=== PATIENT | female | born 1985 | race African-American/Black ===

== ENCOUNTER 2023-05-21 11:00 | Outpatient (REF) | payer MEDICAID, SELFPAY ==
[2023-05-21 13:44] LABS: Basophils Percent Auto 0.3 % (0-2); Eosinophils Absolute Auto 0.1 X10*3/uL (0.0-0.4); Eosinophils Percent Auto 1.5 % (0-4); Hematocrit 38.8 % (37.0-47.0); Imm Gran Abs Auto 0.01 X10*3/uL (0.00-0.03); Imm Gran Pct Auto 0.2 % (0.0-0.4); Lymphocytes Percent Auto 50.3 % (20-40); MANUAL DIFF FLAG SCAN; Mean Corpuscular HGB Conc 30.9 g/dl (31.0-35.0); Mean Corpuscular Hemoglobin 26.2 pg (27.0-33.0); Mean Corpuscular Volume 84.7 fL (80.0-98.0); Mean Platelet Volume 9.6 fL (9.4-12.3); Monocytes Absolute Auto 0.4 X10*3/uL (0.1-1.2); Monocytes Percent Auto 5.9 % (2-11); Neutrophils Absolute Auto 2.5 x10*3/uL (2.0-8.3); Neutrophils Percent Auto 41.8 % (45-73); Platelet Count 402 X10*3/uL (160-400); Red Blood Count 4.58 X10*6/uL (4.20-5.50); SCAN SMEAR FLAG 1; White Blood Count 5.9 X10*3/uL (4.8-10.8)
[2023-05-21 13:51] LABS: Estimated Average Glucose 117 mg/dL; Hemoglobin A1c % 5.7 % (<6.0)
[2023-05-21 14:14] LABS: Alanine Aminotransferase 24 U/L (0-31); Albumin Level 4.3 g/dL (3.5-5.0); Alkaline Phosphatase 65 U/L (39-117); Anion Gap 10 (12-20); Aspartate Amino Transferase 17 U/L (5-31); Bilirubin Total 0.3 mg/dL (0.0-1.0); Blood Urea Nitrogen 7 mg/dL (9-16); Calcium 9.8 mg/dL (8.4-10.2); Carbon Dioxide 27 mmol/L (22-29); Chloride 106 mmol/L (96-108); Cholesterol 177 mg/dL (<200); Estimated Glomerular Filt Rate > 60; Glucose Random 86 mg/dL (60-115); HDL Cholesterol 50 mg/dL (>40); Iron 43 mcg/dL (30-160); LDL Cholesterol Calculated 110 mg/dL (<100); Percent Iron Saturation 16 % (15-50); Potassium 3.9 mmol/L (3.3-5.1); Sodium 139 mmol/L (135-145); Total Iron Binding Capacity 277 mcg/dL (228-428); Total Protein 8.1 g/dL (6.5-8.0); Triglycerides 86 mg/dL (<150); Unsaturated Iron Binding 234 ug/dL
[2023-05-21 14:31] LABS: Syphilis Screen Nonreactive (Nonreactive)
[2023-05-21 14:34] LABS: Ferritin 29 ng/mL (10-122); TSH reflex Free T4 0.89 uIU/mL (0.32-4.0)
[2023-05-21 15:24] LABS: SLIDE REVIEW VERIFIED
[2023-05-21 17:51] LABS: CT PCR NOT DETECTED (Not Detect.); NG PCR NOT DETECTED (Not Detect.)
[2023-05-22 08:13] LABS: HBS Num1 0.23 mIU/mL (0-7.99); HBc Num1 0.11 S/CO (0.00-0.79); HIV AB/AG Nonreactive (Nonreactive); HIV Num 1 0.08 S/CO (0.00-0.99); Hepatitis B Core Antibody Nonreactive (Nonreactive); Hepatitis B Surface Antigen Negative (Negative); ~HepC Num1 0.18 S/CO (0.00-0.79); ~Hepatitis B Surface Antibody NONREACTIVE (Nonreactive); ~Hepatitis C Antibody Nonreactive (Nonreactive)
[2023-05-23 23:13] LABS: TS Negative Control Passed; TS Panel A 1; TS Panel B 1; TS Positive Control Passed; TSpotTB Negative (Negative)
== END 2023-05-21 11:01 | disposition home or self-care (01) ==
LOC: HO.HHCL 11:00
PROVIDERS: Visit Provider Student in an Organized Health Care Education/Training Program
DX: Z00.00 Encounter for general adult medical examination without abnormal findings (principal); Z11.4 Encounter for screening for human immunodeficiency virus [HIV]; Z11.3 Encounter for screening for infections with a predominantly sexual mode of transmission
CPT/HCPCS: 0353U; 80053; 80061; 82728; 83036; 83540; 84443; 85025; 86481; 86704; 86706; 86780; 86803; 87340; 87389

== ENCOUNTER 2023-05-23 16:10 | Outpatient (REF) | payer MEDICAID, SELFPAY ==
[2023-05-24 13:49] LABS: Campylobacter Not Detected (Not Detect.); Cryptosporidium Not Detected (Not Detect.); Cyclospora cayetanensis Not Detected (Not Detect.); E. coli EAEC Not Detected (Not Detect.); E. coli EPEC Not Detected (Not Detect.); E. coli ETEC Not Detected (Not Detect.); E. coli STEC Not Detected (Not Detect.); Plesiomonas shigelloides Not Detected (Not Detect.); Salmonella Not Detected (Not Detect.); Shigella sp./EIEC Not Detected (Not Detect.); Vibrio Not Detected (Not Detect.); Vibrio Cholerae Not Detected (Not Detect.); Yersinia enterocolitica Not Detected (Not Detect.)
[2023-05-24 13:50] LABS: Adenovirus F 40/41 Not Detected (Not Detect.); Astrovirus Not Detected (Not Detect.); Entamoeba histolytica Not Detected (Not Detect.); Giardia lamblia Not Detected (Not Detect.); Norovirus GI/GII Not Detected (Not Detect.); Rotavirus A Not Detected (Not Detect.); Sapovirus Not Detected (Not Detect.)
== END 2023-05-23 16:11 | disposition home or self-care (01) ==
LOC: HO.HHCLNP 16:10
PROVIDERS: Visit Provider Student in an Organized Health Care Education/Training Program
DX: Z00.00 Encounter for general adult medical examination without abnormal findings (principal)
CPT/HCPCS: 87507

== ENCOUNTER 2023-07-09 18:33 | Outpatient (REF) | payer MEDICAID, SELFPAY ==
[2023-07-10 13:48] LABS: BV Int Neg Control Negative (Negative); BV Int Pos Control Positive (Positive)
[2023-07-11 22:23] LABS: HPV mRNA E6/E7 rflx Not Detected (Not Detected)
== END 2023-07-09 18:34 | disposition home or self-care (01) ==
LOC: HO.HHCLNP 18:33
PROVIDERS: Visit Provider Advanced Practice Midwife
DX: Z12.4 Encounter for screening for malignant neoplasm of cervix (principal); Z11.51 Encounter for screening for human papillomavirus (HPV); N89.8 Other specified noninflammatory disorders of vagina
CPT/HCPCS: 87480; 87510; 87624; 87660; 88142

== ENCOUNTER 2023-10-28 10:38 | Emergency (ER) | payer MEDICAID, SELFPAY ==
--- NOTE | ~2023-10-28 | US_ITS ---
EXAMINATION: US PELVIS CLINICAL INFORMATION: Back pain and bleeding. COMPARISON: None available. TECHNIQUE: Ultrasound of the pelvis is performed using both transabdominal and transvaginal transducers along with Doppler. Transvaginal imaging is performed due to inadequate visualization transabdominally. FINDINGS: Uterus: The uterus is anteverted and measures 10.8 x 3.7 x 5.3 cm. The double wall endometrial thickness is 5.0 mm. The uterus is smooth in contour and has normal myometrial echogenicity. No visible fibroid. Adnexa: Both ovaries are visualized. There is normal color flow to the adnexa. There is no ovarian torsion. There is no pelvic ascites or fluid collection. Right ovary measures 1.9 x 1.3 x 2.3 cm and volume 2.9 mL. No focal lesion seen. Left ovary measures 2.7 x 2.1 x 2.4 cm and volume 7.0 mL. There is a anechoic cyst measuring 1.7 x 1.3 1.4 cm. A small daughter cyst is seen within. There is normal arterial and venous flow to both ovaries on Doppler exam. There is no free fluid in cul-de-sac. US/US pelvic ovarian doppler IMPRESSION: Normal ovaries with normal arterial and venous vascular flow on Doppler exam. There is no torsion. The uterus appears unremarkable.
--- NOTE | ~2023-10-28 | US_ITS ---
EXAMINATION: US PELVIS CLINICAL INFORMATION: Back pain and bleeding. COMPARISON: None available. TECHNIQUE: Ultrasound of the pelvis is performed using both transabdominal and transvaginal transducers along with Doppler. Transvaginal imaging is performed due to inadequate visualization transabdominally. FINDINGS: Uterus: The uterus is anteverted and measures 10.8 x 3.7 x 5.3 cm. The double wall endometrial thickness is 5.0 mm. The uterus is smooth in contour and has normal myometrial echogenicity. No visible fibroid. Adnexa: Both ovaries are visualized. There is normal color flow to the adnexa. There is no ovarian torsion. There is no pelvic ascites or fluid collection. Right ovary measures 1.9 x 1.3 x 2.3 cm and volume 2.9 mL. No focal lesion seen. Left ovary measures 2.7 x 2.1 x 2.4 cm and volume 7.0 mL. There is a anechoic cyst measuring 1.7 x 1.3 1.4 cm. A small daughter cyst is seen within. There is normal arterial and venous flow to both ovaries on Doppler exam. There is no free fluid in cul-de-sac. US/US pelvic and transvaginal IMPRESSION: Normal ovaries with normal arterial and venous vascular flow on Doppler exam. There is no torsion. The uterus appears unremarkable.
--- NOTE | ~2023-10-28 | CT_ITS ---
EXAMINATION: CT head/brain wo IV con CLINICAL INFORMATION: Reason for Exam headache and blurred vision COMPARISON: None. TECHNIQUE: Contiguous axial imaging was performed from the skull base to vertex without intravenous contrast. Sagittal and coronal reformatted images were obtained. This CT examination was performed using dose optimization techniques as appropriate, variously including the following: * Automated exposure control * Adjustment of mA and/or kV according to patient size (this includes techniques or standardized protocols for targeted exams where dose is matched to indication/reason for exam; i.e. extremities or head) Use of iterative reconstruction technique DLP: 688.55 mGy-cm FINDINGS: No acute osseous or soft tissue abnormality. The mastoid are clear. Mild right maxillary sinus mucosal thickening. There is no evidence of acute intracranial hemorrhage or territorial infarction. No abnormal mass effect or midline shift is seen. Serrato to white matter differentiation is well preserved. No extra-axial fluid collections are identified. No hydrocephalus. No significant volume loss. There is no abnormal attenuation within the brain parenchyma. CT/CT head/brain wo IV con IMPRESSION: No acute intracranial abnormality including hemorrhage, mass effect, hydrocephalus, or acute territorial edematous infarction.
[2023-10-28 10:46] VITALS: BP 144/68; PULSE 75; O2SAT 100
[2023-10-28 11:21] VITALS: BP 122/73; PULSE 82; RESP 18; TEMP 37.1; O2SAT 97; BMI 30.9
--- NOTE | 2023-10-28 11:22 | ED.FEMALEGU ---
HPI - Female Genitourinary General Chief complaint: Vaginal Bleeding Stated complaint: HEAVY VAGINAL BLEEDING Time Seen by Provider: 10/28/23 11:58 Source: patient Mode of arrival: ambulatory Limitations: other (American Creole bilingual interpreter used for communication) History of Present Illness HPI Narrative: 38-year-old female with no known medical history presents to the emergency department for evaluation of heavy vaginal bleeding that has been intermittent since August, patient reports the last few days have been the worse she is going through 2-4 pads per hour. She reports that this has never happened to her before. Also has been having a diffuse headache with intermittent blurred vision for the past 3 days. She tells me she is under lot of stress in his living at a intermediate last night she cooked food for her children in somebody threw it away, finances or definitely an issue is suffering from anxiety and depression. No suicidal or homicidal ideation expressed. Denies abdominal pain, fevers, chills, nausea, vomiting, weakness, dizziness, chest pain, shortness of breath. States not sexually active. And doesnt think she is NIH stroke scale 0 Related Data Allergies Allergy/AdvReac Type Severity Reaction Status Date / Time No Known Allergies Allergy Verified 10/28/23 11:29 Review of Systems Review of Systems: Yes all other systems are reviewed and are negative PMFSH Past Medical History Attestation statement: The following information was validated with the patient. Source: old records reviewed and nursing notes reviewed Social History Social History Smoked in Last 30 Days: No Use of substances other than those prescribed or required for medical reasons: No Advance Directives: No Patient : No Physical Exam Vital Signs: Vital Signs: Last Vital Signs Temp 98.5 F 10/28/23 12:00 Pulse 80 10/28/23 12:00 Resp 18 10/28/23 12:00 BP 116/63 10/28/23 12:00 Pulse Ox 99 10/28/23 12:00 O2 Del Method Room Air 10/28/23 12:00 BMI result Body Mass Index 30.9 vss Appearance: Alert.? Oriented X3.? No acute distress.? Head: Normocephalic, atraumatic, no step-offs or deformities Eyes: Pupils equal, round and reactive to light.? ENT: Pharynx normal.? Neck: Normal inspection.? Neck supple.? CVS: Normal heart rate and rhythm.? Pulses normal.? Respiratory: No respiratory distress.? Breath sounds normal.? Abdomen: Soft and nontender.? Skin: Skin warm and dry.? Normal skin color.? Normal skin turgor.? Extremities: No lower extremity edema.? No calf ttp. 5/5 strength to bilateral upper and lower extremities Sensative exam: Brittaney ESCAMILLA-Kaity bedside as internal communications specialist and Lucia ANTHONY cervical canal with discoloration of mucosa, white patches b/l, there is brown discharge also noted coming from the cervical os w/ scant bleeding. No signs of hemorrhaging at this time. Patient very uncomfortable with pelvic exam. Question positive chandelier sign. Neuro: Oriented X 3.? No motor deficit.? No sensory deficit. CN 2-12 intact Course Course Course Narrative: This is rapid medical exam. Deferred additional HPI, ROS, PE to primary provider. 38 yo female (speaks haicesar avendano) with no known medical history here with vaginal bleeding x 1 month, lower back pain. No abdominal pain. Using 8 tampons per day. Also c/o headache, blurry vision bilateral. Will obtain labs, UA, urine preg VSS Reevaluation(s) Reevaluation #1: Nursing reported to me that patient is a very difficult stick. She is currently in ultrasound. Will try and obtain labs and IV when she returns. Time: 12:50 Reevaluation #2: CBC unremarkable. Chemistry no acute findings requiring intervention. Beta hCG negative. Negative chlamydia negative gonorrhea. Yeast and Trichomonas negative. Head CT no acute intracranial abnormality including hemorrhage, mass effect, hydrocephalus, or acute territorial edematous infarction noted. US showing normal ovaries w/ normal arterial and venous vascular flow on doppler exam. No torsion. The uterus appears unremarkable. Has changed her pad X2 while in the dept. Repeat CBC and UA pending. Time: 15:55 Reevaluation #3: Sign out to Abdiel Escamilla Time: 15:56 Medical Decision Making Medical Decision Making [facility] Narrative: 1201 38 yo f presents w/ heavy vaginal bleeding intermittently since August and a/c lower back pain, headache and intermittent blurred vision ( not present at this time) . Reports 2-4 pads per hour PE cervical canal with discoloration of mucosa, white patches, there is brown discharge also noted coming from the cervical os scant bleeding. No signs of hemorrhaging at this time. Patient very uncomfortable with pelvic exam. Question positive chandelier sign. Likely menometrorrhagia, dysfunctional uterine bleeding. Also some suspicion for cervical dysplasia/hyperplasia and possible BV versus STD versus PID. Possible acute blood loss anemia. Will rule out other metabolic derangements, unlikely miscarriage based off patient history and physical exam however will rule out. Low suspicion for torsion. Other differentials include bleeding fibroids versus ruptured ovarian cyst. Headache likely secondary to acute blood loss, blurred vision intermittent not present at this time unlikely vessel occlusion, stroke, posterior stroke, intracranial hemorrhage. I do not suspect venous arterial occlusion of optic vessels, acute closed angle glaucoma or wet macular degeneration. Plan at this time labs, imaging, urine, . Differential Diagnosis Differential Diagnoses: The differential diagnosis associated with the presentation includes Likely menometrorrhagia, dysfunctional uterine bleeding.Also some suspicion for cervical dysplasia/hyperplasia and possible BV versus STD versus PID.. Possible acute blood loss anemia. Will rule out other metabolic derangements, unlikely miscarriage based off patient history and physical exam however will rule out. Low suspicion for torsion. Other differentials include bleeding fibroids versus ruptured ovarian cyst. Headache likely secondary to acute blood loss, blurred vision intermittent not present at this time unlikely vessel occlusion, stroke, posterior stroke, intracranial hemorrhage. I do not suspect venous arterial occlusion of optic vessels, acute closed angle glaucoma or wet macular degeneration. Admission/Observation Consideration of admission/observation: Escalation of care including admission/observation considered Lab Data MDM Lab Attestation statement: I reviewed the patient's lab results. CBC unremarkable vaginal swab negative for gonorrhea, chlamydia or trichomonas 10/28/23 13:47 10/28/23 13:47 Labs: Lab Results 10/28/23 10/28/23 Range/Units 12:30 13:47 WBC 8.3 (4.8-10.8) X10*3/uL RBC 4.66 (4.20-5.50) X10*6/uL Hgb 12.5 (12.0-16.0) g/dl Hct 38.9 (37.0-47.0) % MCV 83.5 (80.0-98.0) fL MCH 26.8 L (27.0-33.0) pg MCHC 32.1 (31.0-35.0) g/dl RDW 14.1 (11.0-16.0) % Plt Count 301 D (160-400) X10*3/uL MPV 10.2 (9.4-12.3) fL Immature Gran % (Auto) 0.2 (0.0-0.4) % Neut % (Auto) 64.5 (45-73) % Lymph % (Auto) 30.0 (20-40) % Nye % (Auto) 4.7 (2-11) % Eos % (Auto) 0.2 (0-4) % Baso % (Auto) 0.4 (0-2) % Lymph # (Auto) 2.5 (1.2-4.9) X10*3/uL Nye # (Auto) 0.4 (0.1-1.2) X10*3/uL Eos # (Auto) 0.0 (0.0-0.4) X10*3/uL Baso # (Auto) 0.0 (0.0-0.2) X10*3/uL Abs Immat Gran (auto) 0.02 (0.00-0.03) X10*3/uL Absolute Neuts (auto) 5.4 (2.0-8.3) x10*3/uL Absolute Nucleated RBC 0.000 (0.0-0.012) X10*3/uL Nucleated RBC % (auto) 0.0 (0.0-0.2) /100WBC Sodium 138 (135-145) mmol/L Potassium 4.2 (3.3-5.1) mmol/L Chloride 106 (96-108) mmol/L Carbon Dioxide 20 L (22-29) mmol/L Anion Gap 16 (12-20) BUN 9 (9-16) mg/dL Creatinine 0.73 (0.5-1.4) mg/dL Estim Creat Clear Calc 96.3 Estimated GFR > 60 Random Glucose 97 (60-115) mg/dL Calcium 9.6 (8.4-10.2) mg/dL Total Bilirubin 0.3 (0.0-1.0) mg/dL Direct Bilirubin 0.1 (0.0-0.5) mg/dL AST 20 (5-31) U/L ALT 16 (0-31) U/L Alkaline Phosphatase 62 (39-117) U/L Total Protein 8.2 H (6.5-8.0) g/dL Albumin 4.3 (3.5-5.0) g/dL Beta HCG, Quant < 2 mIU/mL Chlam trachomat DNA PCR NOT DETECTED (Not Detect.) N.gonorrhoeae DNA (PCR) NOT DETECTED (Not Detect.) Independent Interpretation I performed an independent interpretation of an: Ultrasound (US/US pelvic ovarian doppler IMPRESSION: Normal ovaries with normal arterial and venous vascular flow on Doppler exam. There is no torsion. The uterus appears unremarkable.US/US pelvic and transvaginal IMPRESSION: Normal ovaries with normal arterial and venous vascular flow on Doppler exam. Ther) and CT Scan (CT/CT head/brain wo IV con IMPRESSION: No acute intracranial abnormality including hemorrhage, mass effect, hydrocephalus, or acute territorial edematous infarction. ) Radiology Impression Discussion of test interpretation with radiology: I have reviewed the radiologist's reading. Radiologist Impression: US/US pelvic and transvaginal IMPRESSION: Normal ovaries with normal arterial and venous vascular flow on Doppler exam. There is no torsion. The uterus appears unremarkable. US/US pelvic ovarian doppler IMPRESSION: Normal ovaries with normal arterial and venous vascular flow on Doppler exam. There is no torsion. The uterus appears unremarkable. CT/CT head/brain wo IV con IMPRESSION: No acute intracranial abnormality including hemorrhage, mass effect, hydrocephalus, or acute territorial edematous infarction. External Record Review External record reviewed: Inpatient record, Outpatient record, Prior outpatient labs, Prior outpatient radiology, Primary care record and Outside ED record Critical Care Time Critical Care Time Critical Care Time: Yes Total Critical Care Time: 45 Attestation: I attest to this time spent taking care of the patient, obtaining history, physical, reviewing labs, imaging, speaking to my attending, speaking to specialist. Discharge Plan Discharge Clinical Impression: Vaginal bleeding, Vaginal discharge, Anxiety
[2023-10-28 12:00] VITALS: BP 116/63; PULSE 80; RESP 18; TEMP 36.9; O2SAT 99
--- NOTE | 2023-10-28 12:58 | PC.NURSE ---
pt to ultrasound, pt difficult stick, provider notified, tech to attempt finger stick for some labs per provider request
[2023-10-28 13:59] LABS: MANUAL DIFF FLAG NO
[2023-10-28 14:01] LABS: Basophils Percent Auto 0.4 % (0-2); Eosinophils Percent Auto 0.2 % (0-4); Hematocrit 38.9 % (37.0-47.0); Hemoglobin 12.5 g/dl (12.0-16.0); Imm Gran Abs Auto 0.02 X10*3/uL (0.00-0.03); Imm Gran Pct Auto 0.2 % (0.0-0.4); Lymphocytes Absolute Auto 2.5 X10*3/uL (1.2-4.9); Mean Corpuscular HGB Conc 32.1 g/dl (31.0-35.0); Mean Corpuscular Hemoglobin 26.8 pg (27.0-33.0); Mean Corpuscular Volume 83.5 fL (80.0-98.0); Mean Platelet Volume 10.2 fL (9.4-12.3); Monocytes Absolute Auto 0.4 X10*3/uL (0.1-1.2); Monocytes Percent Auto 4.7 % (2-11); Neutrophils Absolute Auto 5.4 x10*3/uL (2.0-8.3); Neutrophils Percent Auto 64.5 % (45-73); Platelet Count 301 X10*3/uL (160-400); Red Blood Count 4.66 X10*6/uL (4.20-5.50); Red Cell Distribution Width 14.1 % (11.0-16.0); White Blood Count 8.3 X10*3/uL (4.8-10.8)
[2023-10-28 14:07] LABS: CT PCR NOT DETECTED (Not Detect.); NG PCR NOT DETECTED (Not Detect.)
[2023-10-28 14:28] LABS: Alanine Aminotransferase 16 U/L (0-31); Albumin Level 4.3 g/dL (3.5-5.0); Alkaline Phosphatase 62 U/L (39-117); Anion Gap 16 (12-20); Aspartate Amino Transferase 20 U/L (5-31); Bilirubin Direct 0.1 mg/dL (0.0-0.5); Bilirubin Total 0.3 mg/dL (0.0-1.0); Blood Urea Nitrogen 9 mg/dL (9-16); Calcium 9.6 mg/dL (8.4-10.2); Carbon Dioxide 20 mmol/L (22-29); Chloride 106 mmol/L (96-108); Creatinine Clr Calc Pharmacy 96.3; Estimated Glomerular Filt Rate > 60; Glucose Random 97 mg/dL (60-115); Potassium 4.2 mmol/L (3.3-5.1); Sodium 138 mmol/L (135-145); Total Protein 8.2 g/dL (6.5-8.0)
[2023-10-28 14:30] LABS: HCG Quantitative < 2 mIU/mL
[2023-10-28 16:12] VITALS: BP 119/66; PULSE 76; RESP 14; TEMP 37; O2SAT 99
[2023-10-28 16:25] LABS: MANUAL DIFF FLAG NO
[2023-10-28 16:31] LABS: Basophils Percent Auto 0.2 % (0-2); Hematocrit 38.7 % (37.0-47.0); Hemoglobin 12.4 g/dl (12.0-16.0); Imm Gran Abs Auto 0.02 X10*3/uL (0.00-0.03); Imm Gran Pct Auto 0.2 % (0.0-0.4); Lymphocytes Absolute Auto 1.7 X10*3/uL (1.2-4.9); Lymphocytes Percent Auto 21.6 % (20-40); Mean Corpuscular Hemoglobin 26.3 pg (27.0-33.0); Mean Platelet Volume 8.9 fL (9.4-12.3); Monocytes Absolute Auto 0.3 X10*3/uL (0.1-1.2); Monocytes Percent Auto 3.5 % (2-11); Neutrophils Percent Auto 74.5 % (45-73); Platelet Count 376 X10*3/uL (160-400); Red Blood Count 4.72 X10*6/uL (4.20-5.50); Red Cell Distribution Width 13.9 % (11.0-16.0)
[2023-10-28 18:12] LABS: Appearance Urine Clear; Color Urine Yellow; Glucose Urine UA Negative (Negative); Leukocyte Esterase Urine Negative (Negative); Nitrite Urine Negative (Negative); UMIC TRIGGER UACC YES; Urine Blood Moderate (2+) (Negative); Urine Ketones Negative (Negative); Urine Protein Negative (Neg-Trace)
[2023-10-28 18:15] LABS: UPreg QC Valid YES; Urine Pregnancy NEGATIVE (NEGATIVE)
[2023-10-28 18:32] LABS: Bacteria Urine None Seen (None Seen); Hyaline Casts Urine 0-2 /LPF (0-2); RBC Urine 0-2 /HPF (0-2); WBC Urine 0-5 /HPF (0-5)
[2023-10-29 13:41] LABS: BV Int Neg Control Negative (Negative); BV Int Pos Control Positive (Positive)
== END 2023-10-28 18:55 | disposition home or self-care (01) ==
PROVIDERS: Nurse Practitioner Family; Physician Assistant; Emergency Provider Emergency Medicine; PCP Student in an Organized Health Care Education/Training Program
DX: N93.9 Abnormal uterine and vaginal bleeding, unspecified (principal); N89.8 Other specified noninflammatory disorders of vagina; F41.9 Anxiety disorder, unspecified; R51.9 Headache, unspecified; H53.8 Other visual disturbances; M54.50 Low back pain, unspecified
CPT/HCPCS: 0353U; 36415; 70450; 76830; 76856; 80048; 80076; 81001; 81025; 84702; 85025; 87480; 87510; 87660; 93975; 99284

== ENCOUNTER 2024-07-08 16:39 | Outpatient (REF) | payer MEDICAID, SELFPAY ==
[2024-07-09 09:14] LABS: Bacterial Vaginosis PCR NEGATIVE (Negative); Candida Group PCR NOT DETECTED (Not Detect); Candida glab krusei PCR NOT DETECTED (Not Detect); Trichomonas vaginalis PCR NOT DETECTED (Not Detect)
== END 2024-07-08 16:40 | disposition home or self-care (01) ==
LOC: HO.HHCLNP 16:39
PROVIDERS: Visit Provider Advanced Practice Midwife
DX: R35.0 Frequency of micturition (principal); N89.8 Other specified noninflammatory disorders of vagina
CPT/HCPCS: 0352U; 87086

== ENCOUNTER 2024-07-14 15:29 | Outpatient (REF) | payer MEDICAID, SELFPAY ==
[2024-07-14 16:26] LABS: MANUAL DIFF FLAG NO
[2024-07-14 16:32] LABS: Basophils Percent Auto 0.3 % (0-2); Eosinophils Percent Auto 0.6 % (0-4); Hematocrit 35.1 % (37.0-47.0); Hemoglobin 11.5 g/dl (12.0-16.0); Imm Gran Abs Auto 0.01 X10*3/uL (0.00-0.03); Imm Gran Pct Auto 0.1 % (0.0-0.4); Lymphocytes Percent Auto 44.2 % (20-40); Mean Corpuscular HGB Conc 32.8 g/dl (31.0-35.0); Mean Corpuscular Hemoglobin 26.6 pg (27.0-33.0); Mean Corpuscular Volume 81.3 fL (80.0-98.0); Mean Platelet Volume 9.2 fL (9.4-12.3); Monocytes Absolute Auto 0.5 X10*3/uL (0.1-1.2); Neutrophils Absolute Auto 3.3 x10*3/uL (2.0-8.3); Neutrophils Percent Auto 47.8 % (45-73); Platelet Count 365 X10*3/uL (160-400); Red Blood Count 4.32 X10*6/uL (4.20-5.50); Red Cell Distribution Width 14.1 % (11.0-16.0); White Blood Count 6.8 X10*3/uL (4.8-10.8)
[2024-07-14 16:58] LABS: Alanine Aminotransferase 18 U/L (0-31); Albumin Level 4.2 g/dL (3.5-5.0); Alkaline Phosphatase 59 U/L (39-117); Anion Gap 12 (12-20); Aspartate Amino Transferase 23 U/L (5-31); Bilirubin Total 0.3 mg/dL (0.0-1.0); Blood Urea Nitrogen 11 mg/dL (9-16); Calcium 9.9 mg/dL (8.4-10.2); Carbon Dioxide 26 mmol/L (22-29); Chloride 107 mmol/L (96-108); Estimated Glomerular Filt Rate > 60; Glucose Random 107 mg/dL (60-115); Potassium 3.7 mmol/L (3.3-5.1); Sodium 141 mmol/L (135-145); Total Protein 7.6 g/dL (6.5-8.0)
[2024-07-14 18:33] LABS: CT PCR NOT DETECTED (Not Detect.); NG PCR NOT DETECTED (Not Detect.)
== END 2024-07-14 15:30 | disposition home or self-care (01) ==
LOC: HO.HHCL 15:29
PROVIDERS: Visit Provider Student in an Organized Health Care Education/Training Program
DX: R10.32 Left lower quadrant pain (principal)
CPT/HCPCS: 36415; 80053; 85025; 87491; 87591